=== PATIENT | female | born 2000 | race American Indian/Alaskan Native ===

== ENCOUNTER 2019-06-16 00:06 | Outpatient (CLI) | payer OTHER ==
--- NOTE | 2019-06-16 05:00 | Ultrasound Report ---
ULTRASOUND OBSTETRIC Indication: vaginal spotting Findings: There is a single, living intrauterine . Low-lying placenta without evidence of a previa. No evidence of abruption. Cervical length 3.6 cm heart rate is 145 beats per minute. The ovaries are normal. There is no free fluid. Impression: No evidence of placenta previa or abruption Signer Name: Wilber Mazariegos MD Signed: 06/16/2019 4:56 AM Workstation Name: [id number]
[2019-06-16 17:23] VITALS: BP 123/72
== END 2019-06-16 05:54 | disposition home or self-care (01) ==
LOC: NM 00:06 → TRG 00:16 → NM 05:54
PROVIDERS: ATTEND Obstetrics & Gynecology
DX: O46.92 Antepartum hemorrhage, unspecified, second trimester (principal); Z3A.21 21 weeks gestation of pregnancy; Z87.891 Personal history of nicotine dependence
CPT/HCPCS: 59025; 76815